=== PATIENT | male | born 1990 | race Caucasian/White ===

== ENCOUNTER 2016-11-28 21:25 | Emergency (ER) | payer MEDICAID, OTHER ==
[2016-11-28 21:31] VITALS: TEMP 97.7
[2016-11-28] MEDS ORDERED: HYDROmorphONE/DILAUDID 1 MG/ML SYR IVP ONE (21:53)
[2016-11-28] MEDS ORDERED: ONDANSETRON 4 MG/2 ML VIAL IVP ONE (21:53)
[2016-11-28] MEDS ORDERED: LORazepam 2 MG/ML INJ IVP ONE (21:53)
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
[2016-11-28] MEDS ORDERED: oxyCODONE IR 5 MG TAB ONE (23:29)
[2016-11-28] MEDS ORDERED: oxyCODONE IR 5 MG TAB PO ONE (23:36)
[2016-11-28 23:43] VITALS: BP 130/62; PULSE 72; RESP 16; O2SAT 95
== END 2016-11-28 23:40 | disposition home or self-care (01) ==
DX: M54.12 Radiculopathy, cervical region (principal); F17.200 Nicotine dependence, unspecified, uncomplicated
CPT/HCPCS: 96374; J1170; J2405

== ENCOUNTER 2017-03-24 14:50 | Emergency (ER) | payer MEDICAID ==
--- NOTE | 2017-03-24 15:01 | EDPHY ---
H & P Time Seen by Provider: 03/24/17 14:59 HPI/ROS: Chief complaint. Vomiting blood HPI. 26-year-old male took some Advil and the stomach for migraine. Several hours ago he vomited once without blood and then vomited an hour later this time with blood. No similar symptoms previously he does not have abdominal pain. He feels his abdomen is somewhat queasy and nauseated. He is a cough and slight shortness of breath. No fever. No chest discomfort. No unusual leg pain or swelling. No history of lung problems such as asthma. He is a smoker. Continues to have headache ROS Constitutional. no fever/chills, no weakness Eyes. no problems with vision ENT. no sore throat, no nasal drainage Cardiovascular. no chest pain Respiratory. Shortness of breath and cough Abdominal. No abdominal pain but nausea and vomiting . no problems urinating MS. no calf pain/swelling, no neck/back pain, no joint pain Skin. no rash Lymph. no swollen glands Neuro. Headache Past Medical/Surgical History: Past medical history migraines, ear surgery, neck injury with radiculopathy Social History: Single, daily smoker, no alcohol Smoking Status: Heavy smoker Physical Exam: General Appearance: Alert well-developed male mild distress vital signs stable with heart rate 87. O2 saturation 91% room air Eyes: Pupils equal and round no pallor or injection. ENT, Mouth: Mucous membranes are moist. Respiratory: There are no retractions, lungs are clear to auscultation. Cardiovascular: Regular rate and rhythm. Gastrointestinal: Abdomen is soft and nontender, no masses, bowel sounds normal. Neurological: Awake and alert, sensory and motor exams grossly normal. Skin: Warm and dry, no rashes. Musculoskeletal: Neck is supple nontender. Extremities symmetrical, full range of motion. Psychiatric: Patient is oriented X 3, there is no agitation. Constitutional: Initial Vital Signs Temperature (C) 36.4 C 03/24/17 15:00 Heart Rate 87 03/24/17 15:00 Respiratory Rate 16 03/24/17 15:00 Blood Pressure 145/86 H 03/24/17 15:00 O2 Sat (%) 91 L 03/24/17 15:00 O2 Delivery Mode Room Air Allergies/Adverse Reactions: acetaminophen [From Tylenol] Allergy (Verified 03/24/17 15:05) Home Medications: Medication Instructions Recorded Naproxen 11/28/16 Neurontin 11/28/16 Wellbutrin Sr 11/28/16 Famotidine [Pepcid] 40 mg PO DAILY #7 tablet 03/24/17 Medical Decision Making - Diagnostics Imaging Results: Imaging Impressions Chest X-Ray 03/24/17 15:34 Impression: Chest negative for acute cardiopulmonary abnormality. Chest x-ray interpreted by me consistent with COPD. No evidence for pneumonia Procedures: IV normal saline. Reglan and Benadryl for nausea vomiting and headache. ED Course/Re-evaluation: Re-evaluation 3:45 p.m. patient stable and resting comfortably. Patient will be given another L of normal saline Pepcid IV Recheck again at 4:20 p.m.. Patient is stable. No longer having any nausea. Headache is improved. Patient given oral fluid challenge Recheck at 4:40 p.m.. Patient taking fluids. Not nauseated. No abdominal pain. Headache improved. Neurologically intact I reviewed and discussed x-ray findings laboratory evaluation with the patient and his girlfriend. We discussed treatment plan including criteria for return importance of follow-up and further evaluation. Expressed understanding and agreement Differential Diagnosis: I think this is gastritis secondary to taking NSAIDs on an empty stomach. I have considered peptic ulcer disease, pancreatitis. Patient had a cough and some shortness of breath and I considered pneumonia as well. He has no chest discomfort or leg symptoms that would suggest pulmonary embolus - Data Points Laboratory Results: Laboratory Results 03/24/17 15:05 03/24/17 15:05 03/24/17 03/24/17 15:05 15:05 WBC 10.98 10^3/uL H 10^3/uL (3.80-9.50) RBC 4.78 10^6/uL 10^6/uL (4.40-6.38) Hgb 14.9 g/dL g/dL (13.7-17.5) Hct 43.6 % % (40.0-51.0) MCV 91.2 fL fL (81.5-99.8) MCH 31.2 pg pg (27.9-34.1) MCHC 34.2 g/dL g/dL (32.4-36.7) RDW 12.4 % % (11.5-15.2) Plt Count 325 10^3/uL 10^3/uL (150-400) MPV 9.8 fL fL (8.7-11.7) Neut % (Auto) 78.1 % H % (39.3-74.2) Lymph % (Auto) 14.0 % L % (15.0-45.0) [place] % (Auto) 6.3 % % (4.5-13.0) Eos % (Auto) 0.7 % % (0.6-7.6) Baso % (Auto) 0.4 % % (0.3-1.7) Nucleat RBC Rel Count 0.0 % % (0.0-0.2) Absolute Neuts (auto) 8.58 10^3/uL H 10^3/uL (1.70-6.50) Absolute Lymphs (auto) 1.54 10^3/uL 10^3/uL (1.00-3.00) Absolute Monos (auto) 0.69 10^3/uL 10^3/uL (0.30-0.80) Absolute Eos (auto) 0.08 10^3/uL 10^3/uL (0.03-0.40) Absolute Basos (auto) 0.04 10^3/uL 10^3/uL (0.02-0.10) Absolute Nucleated RBC 0.00 10^3/uL 10^3/uL (0-0.01) Immature Gran % 0.5 % % (0.0-1.1) Immature Gran # 0.05 10^3/uL 10^3/uL (0.00-0.10) Sodium 139 mEq/L mEq/L (134-144) Potassium 4.1 mEq/L mEq/L (3.5-5.2) Chloride 98 mEq/L mEq/L (97-110) Carbon Dioxide 25 mEq/l mEq/l (22-31) Anion Gap 16 mEq/L mEq/L (8-16) BUN 23 mg/dL mg/dL (7-23) Creatinine 1.0 mg/dL mg/dL (0.7-1.3) Estimated GFR > 60 Glucose 93 mg/dL mg/dL (70-100) Calcium 9.2 mg/dL mg/dL (8.5-10.4) Lipase 31.0 IU/L IU/L (23-300) Medications Given: Discontinued Medications Diphenhydramine HCl (Benadryl Injection) 25 mg IVP EDNOW ONE Stop: 03/24/17 15:29 Last Admin: 03/24/17 15:37 Dose: 25 mg Sodium Chloride (Ns) 1,000 mls @ 0 mls/hr IV ONCE ONE PRN Reason: Wide Open Stop: 03/24/17 15:05 Last Admin: 03/24/17 15:10 Dose: 1,000 mls Sodium Chloride (Ns) 1,000 mls @ 0 mls/hr IV ONCE ONE PRN Reason: Wide Open Stop: 03/24/17 15:52 Last Admin: 03/24/17 16:00 Dose: 1,000 mls Famotidine 20 mg/ Sodium (Chloride) 102 mls @ 408 mls/hr IV EDNOW ONE Stop: 03/24/17 16:10 Last Admin: 03/24/17 16:08 Dose: 102 mls Metoclopramide HCl (Reglan Injection) 10 mg IVP EDNOW ONE Stop: 03/24/17 15:29 Last Admin: 03/24/17 15:37 Dose: 10 mg Ondansetron HCl (Zofran) 4 mg IVP EDNOW ONE Stop: 03/24/17 15:09 Last Admin: 03/24/17 15:15 Dose: 4 mg Departure - Departure Disposition: Home, Routine, Self-Care Clinical Impression: Gastritis Qualifiers: Gastritis type: unspecified gastritis Chronicity: acute Gastritis bleeding: with bleeding Qualified Code(s): K29.01 - Acute gastritis with bleeding Migraine Qualifiers: Migraine type: unspecified Status migrainosus presence: without status migrainosus Condition: Good Instructions: Gastritis (ED) Additional Instructions: Pepcid 1 pill daily to help peel the stomach. Maalox or Mylanta 2 tbsp at bedtime to also help heal stomach. Take Advil or Naprosyn with food in your stomach. Return for worsening abdominal pain, fever, further vomiting of blood. Recheck in 1-2 days if not improved Referrals: ELLA MATHEWS,. [Primary Care Provider] - 1 day, if not improved Stand Alone Forms: Work Excuse Prescriptions: Famotidine [Pepcid] 40 mg PO DAILY #7 tablet
[2017-03-24 15:04] VITALS: RESP 16; TEMP 97.5
[2017-03-24] MEDS ORDERED: NS 1,000 ML IV ONE ×2 (15:04→15:51)
[2017-03-24] MEDS ORDERED: ONDANSETRON 4 MG/2 ML VIAL IVP ONE (15:08)
[2017-03-24 15:13] LABS: % IMMATURE GRANULYOCYTES 0.5 % (0.0-1.1); ABSOLUTE IMMATURE GRANULOCYTES 0.05 10^3/uL (0.00-0.10); ADD DIFF? NO; ADD MORPH? NO; ADD SCAN? NO; ATYPICAL LYMPHOCYTE FLAG 10 (0-99); FRAGMENT RBC FLAG 0 (0-99); HEMATOCRIT 43.6 % (40.0-51.0); HEMOGLOBIN 14.9 g/dL (13.7-17.5); LEFT SHIFT FLG 0 (0-99); LIPEMIA HEMOLYSIS FLAG 90 (0-99); MEAN CELL HEMOGLOBIN 31.2 pg (27.9-34.1); MEAN CELL HEMOGLOBIN CONCENTR. 34.2 g/dL (32.4-36.7); MEAN CELL VOLUME 91.2 fL (81.5-99.8); MEAN PLATELET VOLUME 9.8 fL (8.7-11.7); PLATELET CLUMPS FLAG 0 (0-99); PLATELET COUNT 325 10^3/uL (150-400); RED BLOOD CELL COUNT 4.78 10^6/uL (4.40-6.38); RED CELL DISTRIBUTION WIDTH 12.4 % (11.5-15.2)
[2017-03-24] MEDS ORDERED: METOCLOPRAMIDE 10 MG/2 ML VIAL IVP ONE (15:28)
[2017-03-24 15:33] LABS: ANION GAP 16 mEq/L (8-16); CALCIUM 9.2 mg/dL (8.5-10.4); CARBON DIOXIDE 25 mEq/l (22-31); CHLORIDE 98 mEq/L (97-110); GLOMERULAR FILTRATION RATE > 60; GLUCOSE 93 mg/dL (70-100); POTASSIUM 4.1 mEq/L (3.5-5.2); SODIUM 139 mEq/L (134-144)
[2017-03-24] MEDS ORDERED: FAMOTIDINE 20 MG in NS 100 ML IV ONE (15:56)
[2017-03-24 18:13] VITALS: BP 117/57; PULSE 86; O2SAT 95
== END 2017-03-24 17:04 | disposition home or self-care (01) ==
LOC: CED 14:50
DX: K29.01 Acute gastritis with bleeding (principal); G43.909 Migraine, unspecified, not intractable, without status migrainosus; F17.200 Nicotine dependence, unspecified, uncomplicated
CPT/HCPCS: 71020-PO; 80048-PO; 83690-PO; 85025-PO; 96374; J1200; J2405; J2765

== ENCOUNTER 2017-06-20 18:33 | Emergency (ER) | payer OTHER, MEDICAID ==
[2017-06-20 18:43] VITALS: RESP 18
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
[2017-06-20 20:04] VITALS: BP 132/79; PULSE 95; TEMP 97.9; O2SAT 96
== END 2017-06-20 20:04 | disposition home or self-care (01) ==
LOC: EDUNIT#
DX: S46.912A Strain of unspecified muscle, fascia and tendon at shoulder and upper arm level, left arm, initial encounter (principal); V89.2XXA Person injured in unspecified motor-vehicle accident, traffic, initial encounter; F19.10 Other psychoactive substance abuse, uncomplicated; F17.200 Nicotine dependence, unspecified, uncomplicated

== ENCOUNTER 2018-10-15 21:29 | Emergency (ER) | payer MEDICAID, OTHER ==
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
[2018-10-15] MEDS ORDERED: DEXAMETHASONE 10 MG/ML VIAL IVP ONE (21:53)
[2018-10-15] MEDS ORDERED: NS 1,000 ML IV ONE (21:53)
[2018-10-15] MEDS ORDERED: KETOROLAC 30 MG/1 ML SDV IVP ONE (21:53)
[2018-10-15] MEDS ORDERED: METOCLOPRAMIDE 10 MG/2 ML VIAL IVP ONE (21:53)
[2018-10-15 22:15] LABS: PLATELET COUNT 308 10^3/uL (150-400)
[2018-10-15 22:44] VITALS: BP 169/84
== END 2018-10-15 23:00 | disposition left against medical advice (07) ==
DX: Z53.20 Procedure and treatment not carried out because of patient's decision for unspecified reasons (principal); R51 Headache; M25.511 Pain in right shoulder; G89.29 Other chronic pain; I10 Essential (primary) hypertension
CPT/HCPCS: 80305; 96374; J1100; J1200; J1885; J2765

== ENCOUNTER → 2019-04-07 | Outpatient (CLI) | payer MEDICAID | LOC: FIMAGING 17:51 ==